=== PATIENT | female | born 1990 | race Caucasian/White ===

== ENCOUNTER 2018-01-29 08:07 | Inpatient (IN) | payer OTHER ==
[~2018-01-29] VITALS: Ht 160 cm; Wt 61.4 kg
[~2018-01-29 08:07] MED LIST: CLIN-79 PO; DOCU-28 PO; DOXY-8 PO; NITR100C6 PO; POLY119P2 PO; [UNRECOGNIZED DRUG - CODE] OP
[2018-01-29] MEDS ORDERED: gentamicin inj 350 MG in normal saline 100ml IV soln 100 ML IV STA (08:27)
[2018-01-29] MEDS ORDERED: morphine 4 MG/ML inj SYRINge IV ONE (08:30)
[2018-01-29] MEDS ORDERED: ondansetron/PF 4mg/2ml inj IV ONE (08:30)
[2018-01-29] MEDS ORDERED: ketorolac trometh. 30mg/ml inj. IV ONE (08:30)
[2018-01-29] MEDS ORDERED: vancomycin/NS 1 GM ADD-VANTAGE 250 ML IV ONE (08:30)
[2018-01-29] MEDS ORDERED: LORazepam 2 mg/ml vial IV ONE (08:30)
[2018-01-29] MEDS ORDERED: normal saline 1000ML IV soln IV ONE (08:30)
[2018-01-29] MEDS ORDERED: NORMAL SALINE IV STA (08:35)
[2018-01-29] MEDS ORDERED: GENTAMICIN IV STA (08:35)
[2018-01-29 08:56] LABS: BASOPHILS % (AUTO) 0.2 % (0-1); EOSINOPHILS % (AUTO) 0.2 % (0-6); HEMATOCRIT 40.3 % (35.0-45.0); LYMPHOCYTES # (AUTO) 1.1 X10'3 (1.1-4.8); LYMPHOCYTES % (AUTO) 7.9 % (21-51); MEAN CORPUSCULAR HEMOGLOBIN 29.8 PG (27.0-31.0); MEAN CORPUSCULAR HGB CONC 34.7 % (33.0-36.5); MEAN CORPUSCULAR VOLUME 85.9 FL (78-98); MEAN PLATELET VOLUME 8.6 FL (7.4-10.4); MONOCYTES # (AUTO) 0.9 X10'3 (0-0.9); MONOCYTES % (AUTO) 6.4 % (2-12); NEUTROPHILS # (AUTO) 11.7 X10'3 (1.8-7.7); NEUTROPHILS % (AUTO) 85.3 % (42-75); PLATELET COUNT 240 X10'3 (140-440); RED BLOOD COUNT 4.69 X10'6 (4.20-5.60); RED CELL DISTRIBUTION WIDTH 13.7 % (11.5-14.5); WHITE BLOOD COUNT 13.7 X10'3 (4.5-11.0)
[2018-01-29 09:06] LABS: PARTIAL THROMBOPLASTIN TIME 30 SECONDS (22-32); PROTHROMBIN TIME 10.8 SECONDS (9.0-12.0)
[2018-01-29 09:13] LABS: ANION GAP 11 (8-16); BILIRUBIN,TOTAL 0.9 MG/DL (0.1-1.0); BLOOD UREA NITROGEN 8 MG/DL (7-18); BUN/CREATININE RATIO 10.4 (6.6-38.0); CALCIUM 8.8 MG/DL (8.5-10.1); CHLORIDE 94 MMOL/L (99-107); CREATININE 0.77 MG/DL (0.40-0.90); GLUCOSE 96 MG/DL (70-104); POTASSIUM 3.1 MMOL/L (3.5-5.1); SODIUM 135 MMOL/L (135-145); TOTAL CARBON DIOXIDE 30.4 MMOL/L (24-32); TOTAL PROTEIN 7.6 G/DL (6.4-8.2); eGFR 89 ML/MIN
[2018-01-29 09:14] LABS: ALANINE AMINOTRANSFERASE 29 U/L (12-78); ALBUMIN 2.8 G/DL (3.4-5.0); ALBUMIN/GLOBULIN RATIO 0.6 (1.1-1.5); ALKALINE PHOSPHATASE 86 IU/L (46-116); ASPARTATE AMINO TRANSFERASE 22 U/L (10-37)
[2018-01-29] MEDS ORDERED: potassium Cl 20 mEq SR tablet PO ONE (09:40)
[2018-01-29] MEDS: potassium 10mEq/100ml NS w/LIDOcaine (10mg/bag) IV SCH ×2 (10:12→12:00)
[2018-01-29 10:20] LABS: HCG SERUM QL NEGATIVE
[2018-01-29] MEDS ORDERED: iohexol 300mg/ml 100ml inj. ONE (10:30)
[2018-01-29] MEDS ORDERED: enoxaparin 100mg/ml syringe SUBCUT ONE (10:45)
[2018-01-29] MEDS ORDERED: enoxaparin 60mg/0.6ml syringe SUBCUT ONE (10:45)
[2018-01-29] MEDS ORDERED: potassium Cl 40MEQ/NS 500ml 500 ML IV PRN ×2 (11:30)
[2018-01-29] MEDS ORDERED: ondansetron/PF 4mg/2ml inj IV PRN (11:30)
[2018-01-29] MEDS ORDERED: potassium Cl 20 mEq SR tablet PO PRN (11:30)
[2018-01-29] MEDS ORDERED: HYDROmorphone inj. 0.5 MG/0.5 ML DISP.SYRIN IV PRN (11:30)
[2018-01-29] MEDS ORDERED: metoclopramide 5 mg/ml inj IV PRN (11:30)
[2018-01-29] MEDS ORDERED: acetaminophen 650mg rectal suppository RC PRN (11:30)
[2018-01-29] MEDS ORDERED: bisacodyl 10mg suppository rectal RC PRN (11:30)
[2018-01-29] MEDS ORDERED: diphenhydrAMINE 50 mg/ml inj IV PRN (11:30)
[2018-01-29] MEDS ORDERED: morphine 4 MG/ML inj SYRINge IV PRN (11:30)
[2018-01-29] MEDS ORDERED: acetaminophen 325mg tablet PO PRN ×2 (11:30)
[2018-01-29] MEDS ORDERED: HYDROcodone/acetaminophen 5mg/325mg tablet PO PRN (11:30)
[2018-01-29] MEDS ORDERED: diphenhydrAMINE 25mg capsule PO PRN (11:30)
[2018-01-29] MEDS ORDERED: mag hydrox/Alum hydrox/simeth 30ml oral suspension PO PRN (11:30)
[2018-01-29 11:35] LABS: CLARITY,URINE CLEAR (Clear); COLOR,URINE YELLOW (Yellow); GLUCOSE, URINE NEGATIVE (Neg); KETONES,URINE >=80 mg/dl (Neg); LEUKOCYTE ESTERASE ,URINE NEGATIVE (Neg); NITRITES, URINE NEGATIVE (Neg); OCCULT BLOOD,URINE SMALL (Neg); PROTEIN,URINE TRACE mg/dl (Neg)
[2018-01-29 11:38] LABS: UA COLLECTION TYPE CLN CATCH MIDSTREAM
[2018-01-29 11:40] LABS: BACTERIA,URINE 1+ /HPF (Neg); MUCUS STRANDS FEW /LPF (Neg); SQUAMOUS EPITHELIAL CELL,UR FEW /LPF (FEW)
[2018-01-29 11:41] LABS: COARSE GRANULAR CAST 0-3 /LPF (NEGATIVE)
[2018-01-29] MEDS: dextrose 5%-1/2 normal saline 1,000 ML IV SCH ×2 (11:56→12:50)
[2018-01-29 12:04] LABS: PHOSPHORUS 3.2 MG/DL (2.3-4.5)
[2018-01-29] MEDS ORDERED: potassium 10mEq/100ml NS w/LIDOcaine (10mg/bag) IV ONE (12:05)
[2018-01-29] MEDS: HYDROcodone/acetaminophen 10/325mg tab PO PRN ×3 (12:47→21:28)
[2018-01-29 13:00] VITALS: BP 112/69
[2018-01-29] MEDS ORDERED: ketorolac trometh. 30mg/ml inj. IV SCH (14:00)
[2018-01-29] MEDS ORDERED: TETanus/Pertussis (Acell)/Diphther VAC/PF (Tdap-Adult) 0.5ml syringe IMVAC ONE (15:30)
[2018-01-29] MEDS ORDERED: tetanus & diphtheria toxoid (Td) vaccine 0.5ml IMVAC ONE (15:30)
[2018-01-29] MEDS: ketorolac trometh. 30mg/ml inj. IV PRN ×2 (15:56→23:48)
[2018-01-29] MEDS ORDERED: piperacillin/tazo 4.5gm/100ml 100 ML IV SCH (16:00)
[2018-01-29] MEDS: vancomycin/NS 1 GM ADD-VANTAGE 250 ML IV SCH (16:37)
[2018-01-29 18:06] LABS: URINE AMPHETAMINE SCREEN POSITIVE (Neg); URINE BARBITUATE SCREEN NEGATIVE (Neg); URINE BENZODIAZEPINES SCREEN NEGATIVE (Neg); URINE CANNABINOID SCREEN POSITIVE (Neg); URINE COCAINE SCREEN NEGATIVE (Neg); URINE METHADONE SCREEN NEGATIVE (Neg); URINE OPIATE SCREEN POSITIVE (Neg); URINE PHENCYCLIDINE SCREEN NEGATIVE (Neg)
[2018-01-29 18:15] VITALS: BP 93/53
[2018-01-29] MEDS ORDERED: gentamicin in saline, iso-osm 80 MG/50 ML premix IV SCH (20:00)
[2018-01-29] MEDS: heparin, porcine 5000 units/ml vial SQ SCH (20:13)
[2018-01-29] MEDS: gentamicin inj 80 MG in normal saline 100ml IV soln 98 ML IV SCH (20:13)
[2018-01-29] MEDS: docusate sod 100mg capsule PO SCH (20:13)
[2018-01-29] MEDS ORDERED: temazepam 15mg capsule PO PRN (21:00)
[2018-01-29 22:00] VITALS: BP 93/56
[2018-01-29] MEDS ORDERED: LORazepam 1 MG tablet PO PRN (23:00)
[2018-01-29] MEDS ORDERED: LORazepam 2 mg/ml vial IV PRN (23:00)
[2018-01-29] MEDS: magnesium hydroxide 30ml (MOM) UD suspension PO PRN (23:43)
[2018-01-30 00:30] VITALS: BP 97/49
[2018-01-30] MEDS: vancomycin/NS 1 GM ADD-VANTAGE 250 ML IV SCH ×2 (00:54→09:30)
[2018-01-30] MEDS: dextrose 5%-1/2 normal saline 1,000 ML IV SCH (00:55)
[2018-01-30 06:00] VITALS: BP 90/50
[2018-01-30] MEDS: K and/or MAG REPLACEMENT MC SCH (08:00)
[2018-01-30] MEDS: pantoprazole 40mg Tablet.DR PO SCH (08:20)
[2018-01-30] MEDS: docusate sod 100mg capsule PO SCH ×2 (08:21→20:07)
[2018-01-30] MEDS: polyethylene glycol 3350 17gm powd pack PO SCH (08:21)
[2018-01-30] MEDS: gentamicin inj 80 MG in normal saline 100ml IV soln 98 ML IV SCH ×2 (08:21→20:08)
[2018-01-30] MEDS: heparin, porcine 5000 units/ml vial SQ SCH ×2 (08:21→20:07)
[2018-01-30] MEDS ORDERED: VANCOMYCIN LEVEL IV ONE ×3 (08:30→16:30)
[2018-01-30] MEDS: HYDROcodone/acetaminophen 10/325mg tab PO PRN ×2 (08:33→17:13)
[2018-01-30] MEDS: normal saline 1000ml 1,000 ML IV SCH ×3 (09:03→22:23)
[2018-01-30] MEDS ORDERED: normal saline 1000ml 1,000 ML IVB ONE (09:03)
[2018-01-30 09:08] LABS: BASOPHILS % (AUTO) 0 % (0-1); EOSINOPHILS % (AUTO) 0.1 % (0-6); HEMATOCRIT 31.8 % (35.0-45.0); HEMOGLOBIN 10.8 g/dl (12.0-16.0); LYMPHOCYTES % (AUTO) 8.8 % (21-51); MEAN CORPUSCULAR HEMOGLOBIN 29.1 PG (27.0-31.0); MEAN CORPUSCULAR HGB CONC 33.9 % (33.0-36.5); MEAN PLATELET VOLUME 8.9 FL (7.4-10.4); MONOCYTES # (AUTO) 0.8 X10'3 (0-0.9); MONOCYTES % (AUTO) 7.2 % (2-12); NEUTROPHILS # (AUTO) 9.9 X10'3 (1.8-7.7); NEUTROPHILS % (AUTO) 83.9 % (42-75); PLATELET COUNT 215 X10'3 (140-440); WHITE BLOOD COUNT 11.8 X10'3 (4.5-11.0)
[2018-01-30 09:24] LABS: ALANINE AMINOTRANSFERASE 42 U/L (12-78); ALBUMIN 1.9 G/DL (3.4-5.0); ALBUMIN/GLOBULIN RATIO 0.5 (1.1-1.5); ALKALINE PHOSPHATASE 94 IU/L (46-116); ANION GAP 6 (8-16); ASPARTATE AMINO TRANSFERASE 41 U/L (10-37); BILIRUBIN,TOTAL 0.4 MG/DL (0.1-1.0); BLOOD UREA NITROGEN 8 MG/DL (7-18); BUN/CREATININE RATIO 10.7 (6.6-38.0); CALCIUM 7.7 MG/DL (8.5-10.1); CHLORIDE 102 MMOL/L (99-107); CREATININE 0.75 MG/DL (0.40-0.90); GLUCOSE 125 MG/DL (70-104); POTASSIUM 3.3 MMOL/L (3.5-5.1); SODIUM 138 MMOL/L (135-145); TOTAL CARBON DIOXIDE 29.7 MMOL/L (24-32); TOTAL PROTEIN 5.7 G/DL (6.4-8.2); VANCOMYCIN,TROUGH 8.6 UG/ML (6.0-14.0); eGFR > 90 ML/MIN
[2018-01-30] MEDS: potassium Cl 20 mEq SR tablet PO PRN ×2 (09:31→17:07)
[2018-01-30 10:00] VITALS: BP 90/50
[2018-01-30] MEDS: ketorolac trometh. 30mg/ml inj. IV PRN ×2 (12:12→19:09)
[2018-01-30] MEDS ORDERED: acetaminophen 325mg tablet PO PRN ×2 (16:55→16:58)
[2018-01-30 18:00] VITALS: BP 90/53
[2018-01-30 19:10] VITALS: BP 99/54
[2018-01-30] MEDS: magnesium hydroxide 30ml (MOM) UD suspension PO PRN (20:10)
[2018-01-30 21:00] VITALS: BP 128/66
[2018-01-30] MEDS ORDERED: MESSAGE TO NURSING IV ONE (21:00)
[2018-01-31] MEDS: ketorolac trometh. 30mg/ml inj. IV PRN ×4 (00:40→21:11)
[2018-01-31] MEDS: potassium Cl 20 mEq SR tablet PO PRN (00:40)
[2018-01-31] MEDS: HYDROcodone/acetaminophen 10/325mg tab PO PRN ×4 (03:41→23:23)
[2018-01-31] MEDS: normal saline 1000ml 1,000 ML IV SCH (05:23)
[2018-01-31 06:00] VITALS: BP 99/54
[2018-01-31] MEDS ORDERED: MESSAGE TO NURSING IV ONE (07:30)
[2018-01-31] MEDS: pantoprazole 40mg Tablet.DR PO SCH (07:56)
[2018-01-31] MEDS: docusate sod 100mg capsule PO SCH ×2 (07:56→19:53)
[2018-01-31] MEDS: polyethylene glycol 3350 17gm powd pack PO SCH (07:56)
[2018-01-31] MEDS: heparin, porcine 5000 units/ml vial SQ SCH ×2 (07:57→19:53)
[2018-01-31] MEDS: K and/or MAG REPLACEMENT MC SCH (08:00)
[2018-01-31] MEDS ORDERED: K and/or MAG REPLACEMENT MC SCH (08:00)
[2018-01-31] MEDS ORDERED: potassium Cl 40MEQ/NS 500ml 500 ML IV PRN ×2 (08:00)
[2018-01-31] MEDS ORDERED: potassium Cl 20 mEq SR tablet PO PRN ×2 (08:00)
[2018-01-31 08:31] LABS: BASOPHILS % (AUTO) 0.3 % (0-1); EOSINOPHILS # (AUTO) 0.2 X10'3 (0-0.9); EOSINOPHILS % (AUTO) 1.4 % (0-6); HEMATOCRIT 31.3 % (35.0-45.0); HEMOGLOBIN 10.5 g/dl (12.0-16.0); LYMPHOCYTES # (AUTO) 1.5 X10'3 (1.1-4.8); LYMPHOCYTES % (AUTO) 14.3 % (21-51); MEAN CORPUSCULAR HEMOGLOBIN 29.4 PG (27.0-31.0); MEAN CORPUSCULAR HGB CONC 33.6 % (33.0-36.5); MEAN CORPUSCULAR VOLUME 87.4 FL (78-98); MEAN PLATELET VOLUME 9.4 FL (7.4-10.4); MONOCYTES % (AUTO) 8.8 % (2-12); NEUTROPHILS # (AUTO) 8.1 X10'3 (1.8-7.7); NEUTROPHILS % (AUTO) 75.2 % (42-75); PLATELET COUNT 265 X10'3 (140-440); RED BLOOD COUNT 3.58 X10'6 (4.20-5.60); RED CELL DISTRIBUTION WIDTH 13.4 % (11.5-14.5); WHITE BLOOD COUNT 10.8 X10'3 (4.5-11.0)
[2018-01-31 09:19] LABS: ALANINE AMINOTRANSFERASE 36 U/L (12-78); ALBUMIN 1.9 G/DL (3.4-5.0); ALBUMIN/GLOBULIN RATIO 0.5 (1.1-1.5); ALKALINE PHOSPHATASE 94 IU/L (46-116); ANION GAP 9 (8-16); ASPARTATE AMINO TRANSFERASE 24 U/L (10-37); BILIRUBIN,TOTAL 0.3 MG/DL (0.1-1.0); BLOOD UREA NITROGEN 9 MG/DL (7-18); CALCIUM 7.9 MG/DL (8.5-10.1); CHLORIDE 107 MMOL/L (99-107); CREATININE 0.69 MG/DL (0.40-0.90); GLUCOSE 129 MG/DL (70-104); POTASSIUM 3.9 MMOL/L (3.5-5.1); SODIUM 141 MMOL/L (135-145); TOTAL CARBON DIOXIDE 25.5 MMOL/L (24-32); VANCOMYCIN,RANDOM 17.6 UG/ML; eGFR > 90 ML/MIN
[2018-01-31] MEDS: gentamicin inj 80 MG in normal saline 100ml IV soln 98 ML IV SCH ×2 (09:54→19:51)
[2018-01-31] MEDS: morphine 4 MG/ML inj SYRINge IV PRN ×2 (12:28→19:07)
[2018-01-31] MEDS ORDERED: VANCOMYCIN LEVEL IV ONE (16:30)
[2018-01-31 18:00] VITALS: BP 101/61
[2018-01-31] MEDS: lactobacillus rhamnosus 10,000 MMU CELLS/CAPSULE PO SCH (19:53)
[2018-01-31 21:00] VITALS: BP 119/69
[2018-01-31 22:45] LABS: URINE AMPHETAMINE SCREEN NEGATIVE (Neg); URINE BARBITUATE SCREEN NEGATIVE (Neg); URINE BENZODIAZEPINES SCREEN NEGATIVE (Neg); URINE CANNABINOID SCREEN POSITIVE (Neg); URINE COCAINE SCREEN NEGATIVE (Neg); URINE METHADONE SCREEN NEGATIVE (Neg); URINE OPIATE SCREEN POSITIVE (Neg); URINE PHENCYCLIDINE SCREEN NEGATIVE (Neg)
[2018-02-01] MEDS: ketorolac trometh. 30mg/ml inj. IV PRN ×2 (03:04→11:09)
[2018-02-01 06:11] LABS: BASOPHILS % (AUTO) 0.4 % (0-1); EOSINOPHILS # (AUTO) 0.3 X10'3 (0-0.9); EOSINOPHILS % (AUTO) 3.2 % (0-6); HEMATOCRIT 28.5 % (35.0-45.0); HEMOGLOBIN 9.7 g/dl (12.0-16.0); LYMPHOCYTES # (AUTO) 2.2 X10'3 (1.1-4.8); LYMPHOCYTES % (AUTO) 20.4 % (21-51); MEAN CORPUSCULAR HEMOGLOBIN 29.7 PG (27.0-31.0); MEAN CORPUSCULAR HGB CONC 33.9 % (33.0-36.5); MEAN CORPUSCULAR VOLUME 87.6 FL (78-98); MEAN PLATELET VOLUME 8.9 FL (7.4-10.4); MONOCYTES # (AUTO) 0.9 X10'3 (0-0.9); MONOCYTES % (AUTO) 8.1 % (2-12); NEUTROPHILS # (AUTO) 7.1 X10'3 (1.8-7.7); NEUTROPHILS % (AUTO) 67.9 % (42-75); PLATELET COUNT 315 X10'3 (140-440); RED BLOOD COUNT 3.25 X10'6 (4.20-5.60); RED CELL DISTRIBUTION WIDTH 14.5 % (11.5-14.5); WHITE BLOOD COUNT 10.5 X10'3 (4.5-11.0)
[2018-02-01 06:54] LABS: ALANINE AMINOTRANSFERASE 34 U/L (12-78); ALBUMIN 1.8 G/DL (3.4-5.0); ALBUMIN/GLOBULIN RATIO 0.5 (1.1-1.5); ALKALINE PHOSPHATASE 74 IU/L (46-116); ANION GAP 9 (8-16); ASPARTATE AMINO TRANSFERASE 22 U/L (10-37); BILIRUBIN,TOTAL 0.2 MG/DL (0.1-1.0); BLOOD UREA NITROGEN 5 MG/DL (7-18); BUN/CREATININE RATIO 7.2 (6.6-38.0); CALCIUM 8.3 MG/DL (8.5-10.1); CHLORIDE 108 MMOL/L (99-107); CREATININE 0.69 MG/DL (0.40-0.90); GLUCOSE 102 MG/DL (70-104); POTASSIUM 3.8 MMOL/L (3.5-5.1); SODIUM 142 MMOL/L (135-145); TOTAL PROTEIN 5.5 G/DL (6.4-8.2); eGFR > 90 ML/MIN
[2018-02-01] MEDS: pantoprazole 40mg Tablet.DR PO SCH (07:38)
[2018-02-01] MEDS: docusate sod 100mg capsule PO SCH ×2 (07:38→19:34)
[2018-02-01] MEDS: lactobacillus rhamnosus 10,000 MMU CELLS/CAPSULE PO SCH ×2 (07:39→19:34)
[2018-02-01] MEDS: polyethylene glycol 3350 17gm powd pack PO SCH (07:39)
[2018-02-01] MEDS: heparin, porcine 5000 units/ml vial SQ SCH ×2 (07:43→19:34)
[2018-02-01] MEDS: K and/or MAG REPLACEMENT MC SCH (07:49)
[2018-02-01] MEDS: gentamicin inj 80 MG in normal saline 100ml IV soln 98 ML IV SCH ×2 (08:06→21:17)
[2018-02-01] MEDS: HYDROcodone/acetaminophen 10/325mg tab PO PRN ×3 (08:07→21:20)
[2018-02-01] MEDS: morphine 4 MG/ML inj SYRINge IV PRN ×3 (08:53→19:37)
[2018-02-01] MEDS: HYDROmorphone inj. 0.5 MG/0.5 ML DISP.SYRIN IV PRN ×3 (11:31→22:15)
[2018-02-01] MEDS ORDERED: VANCOMYCIN LEVEL IV NR (16:30)
[2018-02-01 18:00] VITALS: BP 103/57
[2018-02-01] MEDS: vancomycin inj 1,250 MG in normal saline 250ml IV soln 250 ML IV SCH (19:28)
[2018-02-01 22:00] VITALS: BP 135/72
[2018-02-02] VITALS (19 sets, daily range): BP systolic 106–144; BP diastolic 64–88
[2018-02-02] MEDS: morphine 4 MG/ML inj SYRINge IV PRN ×6 (02:05→20:53)
[2018-02-02] MEDS: vancomycin inj 1,250 MG in normal saline 250ml IV soln 250 ML IV SCH ×3 (02:08→19:22)
[2018-02-02] MEDS: HYDROcodone/acetaminophen 10/325mg tab PO PRN ×3 (03:53→19:21)
[2018-02-02 06:46] LABS: ALANINE AMINOTRANSFERASE 67 U/L (12-78); ALBUMIN/GLOBULIN RATIO 0.4 (1.1-1.5); ALKALINE PHOSPHATASE 94 IU/L (46-116); ANION GAP 7 (8-16); ASPARTATE AMINO TRANSFERASE 55 U/L (10-37); BILIRUBIN,TOTAL 0.3 MG/DL (0.1-1.0); BLOOD UREA NITROGEN 5 MG/DL (7-18); BUN/CREATININE RATIO 6.8 (6.6-38.0); CALCIUM 8.6 MG/DL (8.5-10.1); CHLORIDE 104 MMOL/L (99-107); CREATININE 0.73 MG/DL (0.40-0.90); GLUCOSE 114 MG/DL (70-104); SODIUM 138 MMOL/L (135-145); TOTAL CARBON DIOXIDE 26.6 MMOL/L (24-32); TOTAL PROTEIN 6.5 G/DL (6.4-8.2); eGFR > 90 ML/MIN
[2018-02-02 06:52] LABS: BASOPHILS # (AUTO) 0.1 X10'3 (0-0.2); BASOPHILS % (AUTO) 0.5 % (0-1); EOSINOPHILS # (AUTO) 0.2 X10'3 (0-0.9); EOSINOPHILS % (AUTO) 1.6 % (0-6); HEMATOCRIT 31.7 % (35.0-45.0); LYMPHOCYTES # (AUTO) 1.8 X10'3 (1.1-4.8); LYMPHOCYTES % (AUTO) 13.3 % (21-51); MEAN CORPUSCULAR HGB CONC 34.8 % (33.0-36.5); MEAN CORPUSCULAR VOLUME 86.3 FL (78-98); MEAN PLATELET VOLUME 9.5 FL (7.4-10.4); MONOCYTES # (AUTO) 0.9 X10'3 (0-0.9); MONOCYTES % (AUTO) 6.6 % (2-12); NEUTROPHILS # (AUTO) 10.9 X10'3 (1.8-7.7); PLATELET COUNT 461 X10'3 (140-440); RED BLOOD COUNT 3.67 X10'6 (4.20-5.60); RED CELL DISTRIBUTION WIDTH 13.6 % (11.5-14.5); WHITE BLOOD COUNT 13.9 X10'3 (4.5-11.0)
[2018-02-02] MEDS: heparin, porcine 5000 units/ml vial SQ SCH ×2 (08:00→20:00)
[2018-02-02] MEDS: K and/or MAG REPLACEMENT MC SCH (08:00)
[2018-02-02] MEDS: lactobacillus rhamnosus 10,000 MMU CELLS/CAPSULE PO SCH ×2 (08:31→20:54)
[2018-02-02] MEDS: pantoprazole 40mg Tablet.DR PO SCH (08:31)
[2018-02-02] MEDS: gentamicin inj 80 MG in normal saline 100ml IV soln 98 ML IV SCH ×2 (08:32→20:53)
[2018-02-02] MEDS: docusate sod 100mg capsule PO SCH ×2 (08:32→20:00)
[2018-02-02] MEDS: polyethylene glycol 3350 17gm powd pack PO SCH (08:32)
[2018-02-02] MEDS ORDERED: ceFAZolin 1000mg inj ONE (11:20)
[2018-02-02] MEDS ORDERED: LIDOcaine 1% 30ml preserv. free vial ONE (11:20)
[2018-02-02] MEDS ORDERED: bacitracin 15gm ointment TP ONE (11:20)
[2018-02-02] MEDS ORDERED: BUPIVAcaine/PF 2.5 mg/ml (0.25%) 30ml vial ONE (11:21)
[2018-02-02] MEDS ORDERED: fentaNYL/PF 50MCG/1 ML 2ML syringe ONE (11:39)
[2018-02-02] MEDS ORDERED: midazolam 2 mg/2 ml injection ONE (11:39)
[2018-02-02] MEDS ORDERED: sevoflurane 250ml liquid IH ONE (11:47)
[2018-02-02] MEDS ORDERED: ondansetron/PF 4mg/2ml inj ONE (12:01)
[2018-02-02] MEDS ORDERED: LIDOcaine 1%/PF (10mg/ml) 5ml vial ONE (12:01)
[2018-02-02] MEDS ORDERED: propofol inj 20 ML IV ONE (12:01)
[2018-02-02] MEDS ORDERED: ringers solution, lacted 1,000 ML IV ONE (12:14)
[2018-02-02] MEDS ORDERED: hydrALAZINE 20mg/ml inj. IV PRN (12:15)
[2018-02-02] MEDS ORDERED: ondansetron/PF 4mg/2ml inj IV PRN (12:15)
[2018-02-02] MEDS ORDERED: morphine 4 MG/ML inj SYRINge IV PRN (12:15)
[2018-02-02] MEDS ORDERED: labetalol 20mg/4ml (5mg/ml) syringe IV PRN (12:15)
[2018-02-02] MEDS ORDERED: meperidine/PF 50mg/ml syringe IV ONE (12:15)
[2018-02-02] MEDS ORDERED: meperidine/PF 50mg/ml syringe IV PRN ×2 (12:15)
[2018-02-02] MEDS ORDERED: VANCOMYCIN LEVEL IV NR (18:30)
[2018-02-03 01:05] VITALS: BP 103/64
[2018-02-03] MEDS: vancomycin inj 1,250 MG in normal saline 250ml IV soln 250 ML IV SCH ×3 (02:43→19:35)
[2018-02-03] MEDS: morphine 4 MG/ML inj SYRINge IV PRN ×5 (02:52→22:02)
[2018-02-03 05:00] VITALS: BP 119/80
[2018-02-03 05:05] VITALS: BP 110/80
[2018-02-03 06:02] LABS: BASOPHILS % (AUTO) 0.3 % (0-1); EOSINOPHILS # (AUTO) 0.4 X10'3 (0-0.9); EOSINOPHILS % (AUTO) 2.8 % (0-6); HEMATOCRIT 35.2 % (35.0-45.0); HEMOGLOBIN 12.1 g/dl (12.0-16.0); LYMPHOCYTES # (AUTO) 1.8 X10'3 (1.1-4.8); LYMPHOCYTES % (AUTO) 14.4 % (21-51); MEAN CORPUSCULAR HEMOGLOBIN 29.9 PG (27.0-31.0); MEAN CORPUSCULAR HGB CONC 34.5 % (33.0-36.5); MEAN CORPUSCULAR VOLUME 86.6 FL (78-98); MEAN PLATELET VOLUME 8.2 FL (7.4-10.4); MONOCYTES # (AUTO) 0.8 X10'3 (0-0.9); MONOCYTES % (AUTO) 6.3 % (2-12); NEUTROPHILS # (AUTO) 9.7 X10'3 (1.8-7.7); NEUTROPHILS % (AUTO) 76.2 % (42-75); PLATELET COUNT 525 X10'3 (140-440); RED BLOOD COUNT 4.07 X10'6 (4.20-5.60); RED CELL DISTRIBUTION WIDTH 14.2 % (11.5-14.5); WHITE BLOOD COUNT 12.7 X10'3 (4.5-11.0)
[2018-02-03 06:35] LABS: ALANINE AMINOTRANSFERASE 102 U/L (12-78); ALBUMIN 2.2 G/DL (3.4-5.0); ALBUMIN/GLOBULIN RATIO 0.4 (1.1-1.5); ALKALINE PHOSPHATASE 93 IU/L (46-116); ANION GAP 13 (8-16); ASPARTATE AMINO TRANSFERASE 96 U/L (10-37); BILIRUBIN,TOTAL 0.4 MG/DL (0.1-1.0); BLOOD UREA NITROGEN 7 MG/DL (7-18); BUN/CREATININE RATIO 10.3 (6.6-38.0); CHLORIDE 100 MMOL/L (99-107); CREATININE 0.68 MG/DL (0.40-0.90); GLUCOSE 109 MG/DL (70-104); SODIUM 138 MMOL/L (135-145); TOTAL CARBON DIOXIDE 25.5 MMOL/L (24-32); TOTAL PROTEIN 7.1 G/DL (6.4-8.2); eGFR > 90 ML/MIN
[2018-02-03] MEDS: polyethylene glycol 3350 17gm powd pack PO SCH (08:00)
[2018-02-03] MEDS: K and/or MAG REPLACEMENT MC SCH (08:00)
[2018-02-03] MEDS: gentamicin inj 80 MG in normal saline 100ml IV soln 98 ML IV SCH ×2 (08:21→19:35)
[2018-02-03] MEDS: lactobacillus rhamnosus 10,000 MMU CELLS/CAPSULE PO SCH ×2 (08:22→19:36)
[2018-02-03] MEDS: heparin, porcine 5000 units/ml vial SQ SCH ×2 (08:22→19:35)
[2018-02-03] MEDS: docusate sod 100mg capsule PO SCH ×2 (08:22→19:36)
[2018-02-03] MEDS: pantoprazole 40mg Tablet.DR PO SCH (08:22)
[2018-02-03 10:00] VITALS: BP 108/74
[2018-02-03] MEDS: HYDROcodone/acetaminophen 10/325mg tab PO PRN ×3 (11:57→20:37)
[2018-02-03 18:00] VITALS: BP 80/50
[2018-02-03 22:00] VITALS: BP 104/58
[2018-02-04] MEDS: HYDROcodone/acetaminophen 10/325mg tab PO PRN ×2 (01:52→08:58)
[2018-02-04] MEDS: vancomycin inj 1,250 MG in normal saline 250ml IV soln 250 ML IV SCH (03:06)
[2018-02-04] MEDS: morphine 4 MG/ML inj SYRINge IV PRN ×3 (03:07→11:31)
[2018-02-04 05:00] VITALS: BP 101/64
[2018-02-04] MEDS: gentamicin inj 80 MG in normal saline 100ml IV soln 98 ML IV SCH (07:18)
[2018-02-04] MEDS: pantoprazole 40mg Tablet.DR PO SCH (07:18)
[2018-02-04] MEDS: lactobacillus rhamnosus 10,000 MMU CELLS/CAPSULE PO SCH (07:18)
[2018-02-04] MEDS: docusate sod 100mg capsule PO SCH (07:18)
[2018-02-04] MEDS: K and/or MAG REPLACEMENT MC SCH (07:26)
[2018-02-04] MEDS: polyethylene glycol 3350 17gm powd pack PO SCH (07:34)
[2018-02-04] MEDS: heparin, porcine 5000 units/ml vial SQ SCH (08:58)
[2018-02-04 10:00] VITALS: BP 105/61
[2018-02-04] MEDS ORDERED: VANCOMYCIN LEVEL IV ONE (10:30)
[2018-02-04] MEDS ORDERED: vancomycin/NS 1 GM ADD-VANTAGE 250 ML IV SCH (11:00)
[2018-02-05] MEDS ORDERED: VANCOMYCIN LEVEL IV NR (10:30)
== END 2018-02-04 13:00 | disposition left against medical advice (07) | DRG 854 ==
LOC: ER 08:07 → ED HOLD 11:28 → ORTHO 4S 12:52
PROVIDERS: ADMIT Family Medicine; ATTEND Family Medicine
PROC: 0J9H0ZZ Drainage of Left Lower Arm Subcutaneous Tissue and Fascia, Open Approach (ICD-10-PCS; principal; 2018-02-02 11:47)
DX: A41.9 Sepsis, unspecified organism (principal); L03.114 Cellulitis of left upper limb; I80.8 Phlebitis and thrombophlebitis of other sites; L02.414 Cutaneous abscess of left upper limb; E86.0 Dehydration; E87.6 Hypokalemia; Z53.21 Procedure and treatment not carried out due to patient leaving prior to being seen by health care provider; B95.62 Methicillin resistant Staphylococcus aureus infection as the cause of diseases classified elsewhere; F12.90 Cannabis use, unspecified, uncomplicated; F15.10 Other stimulant abuse, uncomplicated; K21.9 Gastro-esophageal reflux disease without esophagitis; F17.210 Nicotine dependence, cigarettes, uncomplicated; K31.9 Disease of stomach and duodenum, unspecified; Z85.038 Personal history of other malignant neoplasm of large intestine; Z88.0 Allergy status to penicillin; Z85.43 Personal history of malignant neoplasm of ovary; Z87.11 Personal history of peptic ulcer disease; Z87.442 Personal history of urinary calculi; Z98.891 History of uterine scar from previous surgery; Z98.51 Tubal ligation status
CPT/HCPCS: 93306; 96365; 96366; 96375; 99285; Z7506; 36415; 73090; 73201; 80053; 80170; 80202; 80305; 81001; 83605; 83735; 83880; 84100; 84145; 84484; 84703; 85025; 85610; 85730; 87040; 87070; 87075; 87077; 87088; 87102; 87186; 90715; 93971; A4565; A6212; A6258; A6446; A6449; A7000; J0690; J1170; J1580; J1644; J1650; J1885; J2001; J2060; J2175; J2250; J2270; J2405; J2543; J2704; J3010; J3370; J3480; J3490; J7030; J7120; Q9967